=== PATIENT | male | born 1990 ===

== ENCOUNTER 2021-03-19 07:42 | Emergency (ER) | payer SELFPAY ==
--- NOTE | 2021-03-19 07:47 | NUR ---
PT LEFT W OUT BEING SEEN
== END 2021-03-19 07:48 | disposition left against medical advice (07) ==
LOC: ED 07:42
DX: R40.4 Transient alteration of awareness (principal); Z53.21 Procedure and treatment not carried out due to patient leaving prior to being seen by health care provider